=== PATIENT | male | born 1975 | race Caucasian/White ===

== ENCOUNTER 2018-01-29 17:18 | Emergency (ER) | payer OTHER ==
[~2018-01-29] VITALS: Ht 182.9 cm; Wt 68.2 kg
[~2018-01-29 17:18] MED LIST: HYDR-3971 PO
[2018-01-29] MEDS ORDERED: OxyCODONE HCL/ACETAMINOPHEN 5-325 MG TABLET PO ONE (18:45)
[2018-01-29] MEDS ORDERED: PERTUSS(ACELL),DIPH,TET VAC/PF 0.5 ML VIAL IM ONE (18:45)
[2018-01-29] MEDS ORDERED: POVIDONE-IODINE 10% 15 ML SOLUTION UD TP ONE (19:00)
[2018-01-29] MEDS ORDERED: BUPIVACAINE HCL/PF 0.25% 10 ML VIAL INJ ONE (19:00)
[2018-01-29 20:50] VITALS: BP 137/80
== END 2018-01-29 21:19 | disposition home or self-care (01) ==
LOC: EMS 17:21
DX: S66.123A Laceration of flexor muscle, fascia and tendon of left middle finger at wrist and hand level, initial encounter (principal); S61.211A Laceration without foreign body of left index finger without damage to nail, initial encounter; S01.01XA Laceration without foreign body of scalp, initial encounter; F10.10 Alcohol abuse, uncomplicated; F12.20 Cannabis dependence, uncomplicated; F17.210 Nicotine dependence, cigarettes, uncomplicated; Z88.2 Allergy status to sulfonamides; Y90.9 Presence of alcohol in blood, level not specified; X99.8XXA Assault by other sharp object, initial encounter; Y93.89 Activity, other specified; Y92.89 Other specified places as the place of occurrence of the external cause; Y99.8 Other external cause status
CPT/HCPCS: 12001; 12042; 73140; 90471; 90715; 99285; J3490